=== PATIENT | male | born 1955 | race Caucasian/White ===

== ENCOUNTER 2022-01-22 12:18 | Inpatient (IN) | payer MEDICARE ==
[~2022-01-22] VITALS: Ht 185.4 cm; Wt 117.7 kg
[~2022-01-22 12:18] MED LIST: BENZ100A PO; Cheratussin AC118 ML PO; LEVO750 PO
[2022-01-22 14:21] LABS: BASOPHILS ABSOLUTE AUTO 0.04 K/mm3 (0.00-0.23); BASOPHILS PERCENT AUTO 0 % (0-2); EOSINOPHILS ABSOLUTE AUTO 0.06 K/mm3 (0.00-0.68); EOSINOPHILS PERCENT AUTO 0 % (0-6); Hematocrit 35.6 % (37.0-53.0); Hemoglobin 11.8 g/dL (13.5-17.5); IMMATURE GRAN ABSOLUTE AUTO 0.24 K/mm3 (0.00-0.10); IMMATURE GRAN PERCENT AUTO 2 % (0-1); LYMPHOCYTES ABSOLUTE AUTO 0.97 K/mm3 (0.84-5.20); LYMPHOCYTES PERCENT AUTO 7 % (21-46); MONOCYTES ABSOLUTE AUTO 0.32 K/mm3 (0.16-1.47); MONOCYTES PERCENT AUTO 2 % (4-13); Mean Corpuscular HGB 28.2 pg (26.0-34.0); Mean Corpuscular HGB Conc 33.1 g/dL (31.5-36.5); Mean Corpuscular Volume 85 fL (80-100); Mean Platelet Volume 9.5 fL (9.1-12.4); NEUTROPHILS PERCENT AUTO 88 % (41-73); Platelet Count 248 K/mm3 (150-400); RDW Coefficient Variation 14.9 % (11.7-14.2); RDW Standard Deviation 46.7 fL (35.1-46.3); Red Blood Cell Count 4.18 M/mm3 (4.30-5.90); White Blood Cell Count 13.93 K/mm3 (4.00-11.30)
[2022-01-22 14:39] LABS: Bun/Creatinine Ratio 27.5 (12.0-20.0); Calcium, Blood 9.2 mg/dL (8.5-10.1); Creatinine, Blood 1.6 mg/dL (0.60-1.20); Potassium, Blood 3.2 mmol/L (3.5-5.5)
[2022-01-22 14:57] LABS: Influenza A, PCR NEGATIVE (NEGATIVE); Influenza B, PCR NEGATIVE (NEGATIVE); Resp Syncytial Virus, PCR NEGATIVE (NEGATIVE); SARS-Cov-2 (COVID-19) PCR, MMC NEGATIVE (NEGATIVE)
[2022-01-22 18:01] LABS: Bun/Creatinine Ratio 24.1 (12.0-20.0); Calcium, Blood 8.6 mg/dL (8.5-10.1); Creatinine, Blood 1.62 mg/dL (0.60-1.20); Potassium, Blood 3.2 mmol/L (3.5-5.5)
[2022-01-23 05:15] LABS: BASOPHILS ABSOLUTE AUTO 0.04 K/mm3 (0.00-0.23); BASOPHILS PERCENT AUTO 0 % (0-2); EOSINOPHILS ABSOLUTE AUTO 0.08 K/mm3 (0.00-0.68); EOSINOPHILS PERCENT AUTO 1 % (0-6); Hematocrit 32.1 % (37.0-53.0); Hemoglobin 10.4 g/dL (13.5-17.5); IMMATURE GRAN ABSOLUTE AUTO 0.33 K/mm3 (0.00-0.10); IMMATURE GRAN PERCENT AUTO 2 % (0-1); LYMPHOCYTES ABSOLUTE AUTO 1.18 K/mm3 (0.84-5.20); LYMPHOCYTES PERCENT AUTO 8 % (21-46); MONOCYTES ABSOLUTE AUTO 0.51 K/mm3 (0.16-1.47); MONOCYTES PERCENT AUTO 4 % (4-13); Mean Corpuscular HGB 28.3 pg (26.0-34.0); Mean Corpuscular HGB Conc 32.4 g/dL (31.5-36.5); Mean Corpuscular Volume 87 fL (80-100); Mean Platelet Volume 9.5 fL (9.1-12.4); NEUTROPHILS ABSOLUTE AUTO 11.99 K/mm3 (1.96-9.15); NEUTROPHILS PERCENT AUTO 85 % (41-73); Platelet Count 261 K/mm3 (150-400); RDW Coefficient Variation 15.3 % (11.7-14.2); RDW Standard Deviation 48.9 fL (35.1-46.3); Red Blood Cell Count 3.68 M/mm3 (4.30-5.90); White Blood Cell Count 14.13 K/mm3 (4.00-11.30)
[2022-01-23 05:49] LABS: Albumin, Blood 1.6 g/dL (3.4-5.0); Albumin/Globulin Ratio 0.3 (0.8-1.8); Bilirubin, Total 0.6 mg/dL (0.1-1.0); Bun/Creatinine Ratio 29.6 (12.0-20.0); Creatinine, Blood 1.62 mg/dL (0.60-1.20); Globulin, Blood 5.6 g/dL (2.2-4.0); Potassium, Blood 3.7 mmol/L (3.5-5.5); Total Protein, Blood 7.2 g/dL (6.4-8.2)
--- NOTE | 2022-01-23 06:04 | NUR ---
SHIFT SUMMARY ER ADMIT. ARRIVAL TO PCU AT 2049. BP SOFT ON ARRIVAL. 70-80'S SYSTOLIC. 500ML BOLUS ORDRED IN ADDITION TO 100ML/HR NS AND SYSTOLIC REMAINS OVER 100 W/ MAP OVER 65. AFEBRILE. HR ST 100-130'S. ON RA SATS OVER 93%. STATES SOB IMPROVED SINCE ER. PT HAS OPEN PRESSURE ULCER ON BOTTOM, KNUCKLE DEEP. PACKED W/ CALCIUM ALGINATE, WOUND PHOTOS IN CHART. PT STATES THAT HE HAS DEALT WITH THIS WOUND FOR YEARS AND HAS NOT HAD ANY OUTPATIENT HELP WITH IT. PT REPORTS TO STRAIGHT CATH HIMSELF Q4 FOR YEARS , STRUGGLING MORESO RECENTLY. THIS RN AND 4 OTHER RN'S ATTEMPTED TO INSERT REDDY CATH WITH NO LUCK. BLADDER SCANNED AT 0500 FOR 270 ML. IN BED SLEEPING WITH CALL ALARM AT SIDE, WILL CONTINUE TO MONITOR UNTIL REPORT GIVEN TO ONCOMING RN
[2022-01-23 13:30] LABS: Source, Urine Foley catheter
[2022-01-23 13:34] LABS: Appearance, Urine Hazy (Clear); Bilirubin, Urine Neg (Neg); Blood, Urine 5+ (Neg); Color, Urine Yellow (P-Yellow); Glucose Qualitative, Urine Neg (Neg); Ketones, Urine 1+ (Neg); Leukocyte Esterase, Urine 3+ (Neg); Nitrite, Urine Neg (Neg); Protein, Urine 2+ (Neg); Specific Gravity, Urine 1.015 (1.003-1.022); Urobilinogen, Urine 2+ (Normal)
[2022-01-23 13:59] LABS: Bacteria Many /hpf; Squamous Epithelial Cells Rare /hpf (Few); White Blood Cells, Urine 25-50 /hpf (0-5)
[2022-01-23 14:00] LABS: Renal Epithelial Few /hpf (0-Rare); Transitional Epithelial Cells Rare /hpf (0-Rare)
--- NOTE | 2022-01-23 17:54 | NUR ---
END OF SHIFT NOTE PT A&O X4. PT W/ BRIEF VISUAL HALLUCINATION THIS AM, ASKING IF THERE IS A MOUSE PROBLEM HERE, STATING HAVING SEEN "MICE CLIMBING UP THE PIPE" IN RM. PT REPORTING INABILITY TO FEEL ANYTHING "BELOW MY NIPPLE LINE." PT UNABLE TO MOVE BLE. PT W/ OCCASSIONAL L LEG RESTLESSNESS. VSS. SPO2 > 92% ON RA. PT W/ OCCASSIONAL THICK BROWN SPUTUM. SPUTUM SPECIMEN SENT PER ORDER. PT MONITOR SHOWING SR-ST, HR 90s-130s. EKG DONE THIS SHIFT. REDDY CATH PLACED THIS SHIFT, DRAINING DARK YELLOW URINE. PT Q2H REPOSITIONING. WOUNDS CLEANSED & REDRESSED THIS SHIFT.
--- NOTE | 2022-01-23 21:16 | NUR ---
ASSUMPTION OF CARE THIS RN ASSUMED CARE OF PATIENT AT 1900. REPORT TAKEN FROM HERNESTO CASSIDY. PATIENT IS A&O X4; NO HALLUCINATIONS AT THIS TIME. PATIENT WITH TACHYPNEA AND DYSPNEA WITH MOVEMENT IN BED. SPO2 88-94% DEPENDENT ON POSITION AND MOVEMENT. 2L VIA NC PLACED ON PATIENT TO MAINTAIN O2 SATS >92%. PATIENT VERBALIZED OXYGEN HELPING WITH HIS SOB. BP STABLE. ST ON THE MONITOR WITH HR 100-110S AT REST. AFERBILE. PATIENT IS A PARAPLEGIC BUT ABLE TO MAKE HIS NEEDS KNOWN WITH GOOD STRENGTH/ROM IN UPPER HALF OF BODY. BED IN LOWEST POSITION AND CALL LIGHT WITHIN REACH. THIS RN WILL REVIEW CHART AND CONTINUE TO MONITOR AND PROVIDE INTERVENTIONS NEEDED/ORDERED.
[2022-01-24 03:18] LABS: Base Excess Venous -0.4 mmol/L; Bicarbonate Venous 23.5 mmol/L (24.0-30.0); pH Blood Venous 7.37 (7.34-7.37)
[2022-01-24 03:46] LABS: BASOPHILS ABSOLUTE AUTO 0.05 K/mm3 (0.00-0.23); BASOPHILS PERCENT AUTO 1 % (0-2); EOSINOPHILS ABSOLUTE AUTO 0.12 K/mm3 (0.00-0.68); EOSINOPHILS PERCENT AUTO 1 % (0-6); Hematocrit 30.8 % (37.0-53.0); Hemoglobin 9.9 g/dL (13.5-17.5); IMMATURE GRAN ABSOLUTE AUTO 0.41 K/mm3 (0.00-0.10); IMMATURE GRAN PERCENT AUTO 4 % (0-1); LYMPHOCYTES ABSOLUTE AUTO 1.22 K/mm3 (0.84-5.20); LYMPHOCYTES PERCENT AUTO 11 % (21-46); MONOCYTES ABSOLUTE AUTO 0.46 K/mm3 (0.16-1.47); MONOCYTES PERCENT AUTO 4 % (4-13); Mean Corpuscular HGB 28.3 pg (26.0-34.0); Mean Corpuscular HGB Conc 32.1 g/dL (31.5-36.5); Mean Corpuscular Volume 88 fL (80-100); Mean Platelet Volume 9.5 fL (9.1-12.4); NEUTROPHILS ABSOLUTE AUTO 8.61 K/mm3 (1.96-9.15); NEUTROPHILS PERCENT AUTO 79 % (41-73); Platelet Count 256 K/mm3 (150-400); RDW Coefficient Variation 15.7 % (11.7-14.2); RDW Standard Deviation 50.5 fL (35.1-46.3); White Blood Cell Count 10.87 K/mm3 (4.00-11.30)
[2022-01-24 04:09] LABS: Albumin, Blood 1.5 g/dL (3.4-5.0); Albumin/Globulin Ratio 0.3 (0.8-1.8); Bilirubin, Total 0.3 mg/dL (0.1-1.0); Bun/Creatinine Ratio 34.1 (12.0-20.0); Creatinine, Blood 1.35 mg/dL (0.60-1.20); Globulin, Blood 5.3 g/dL (2.2-4.0); Potassium, Blood 3.1 mmol/L (3.5-5.5); Total Protein, Blood 6.8 g/dL (6.4-8.2)
--- NOTE | 2022-01-24 05:16 | NUR ---
SHIFT SUMMARY NO ACUTE CHANGES DURING THIS SHIFT. PATIENT WAS ON 1L VIA NC TO MAINTAIN O2 SATS DURING THE NIGHT. PATIENT NOW BACK ON RA WITH O2 SATS >92%. PATIENT STATES THAT SOB HAS IMPROVED. PATIENT REPOSITIONED Q2HRS DURING THIS SHIFT. WOUND CARE DONE FOR WOUNDS ON COCCYX AT 0500. PATIENT'S REDDY CATHETER PATENT AND DRAINING GHAZALA COLOR URINE TO GRAVITY. ATTENDS IN PLACE. PATIENT ABLE TO MAKE NEEDS KNOWN. CALLING APPROPRIATELY. ST ON THE TELE WITH HR 100-110S AT REST. BP STABLE. AFEBRILE. PATIENT IN BED WITH BED IN LOWEST POSITION AND CALL LIGHT WITHIN REACH. NO VISUAL HALLUCINATIONS DURING THIS SHIFT REPORTED BY PREVIOUS RN. THIS RN WILL CONTINUE TO MONITOR UNTIL SHIFT CHANGE AT 0700.
--- NOTE | 2022-01-24 19:27 | NUR ---
END OF SHIFT NOTE - TRANSFER TO MEDICAL FLOOR PT MEDICAL NO TELE STATUS. A&O X4. VSS. SPO2 > 92% ON RA. MONITOR SHOWING SR, HR 80s-90s PRIOR TO TELE DC. PT W/ REDDY CATH IN PLACE, DRAINING GHAZALA COLOR URINE. REDDY CATH W/ OUT SECUREMENT DEVICE IN PLACE D/T SKIN BREAK DOWN. PT W/ MULTIPLE WOUNDS TO BUTTOCKS, SEE WOUND PHOTOS IN CHART. NO EVENTS THIS SHIFT. PT TO BE TRANSFERRED TO MEDICAL FLOOR RM [id number] ONCE ACCEPTING RN RETURNS CALL FOR REPORT.
--- NOTE | 2022-01-25 05:56 | NUR ---
PCU TRANSFER TO MEDICAL FLOOR BEGINNING OF SHIFT. PARAPLEGIC FROM CHEST DOWN. A&OX4. VSS. DENIES PAIN. HAD EPISODE OF NAUSEA, GIVEN IV ZOFRAN. PLEASANT AND COOPERATIVE WITH STAFF. REDDY CATH IN PLACE DRAINING CLEAR, YELLOW URINE. REDDY CATH TO BE DC IN AM.
[2022-01-25 06:02] LABS: Hematocrit 29.6 % (37.0-53.0); Hemoglobin 9.7 g/dL (13.5-17.5); Mean Corpuscular HGB 28.7 pg (26.0-34.0); Mean Corpuscular HGB Conc 32.8 g/dL (31.5-36.5); Mean Corpuscular Volume 88 fL (80-100); RDW Coefficient Variation 15.8 % (11.7-14.2); RDW Standard Deviation 50.4 fL (35.1-46.3); Red Blood Cell Count 3.38 M/mm3 (4.30-5.90)
[2022-01-25 06:23] LABS: Mean Platelet Volume 9.5 fL (9.1-12.4); Platelet Count 283 K/mm3 (150-400)
[2022-01-25 06:29] LABS: Bun/Creatinine Ratio 39.8 (12.0-20.0); Calcium, Blood 8.8 mg/dL (8.5-10.1); Creatinine, Blood 0.9 mg/dL (0.60-1.20)
[2022-01-25 06:35] LABS: BAND PERCENT MAN 2 % (0-8); BASOPHILS PERCENT MAN 0 % (0-2); EOSINOPHILS ABSOLUTE MAN 0.21 K/mm3 (0.00-0.68); EOSINOPHILS PERCENT MAN 2 % (0-6); LYMPHOCYTES ABSOLUTE MAN 1.27 K/mm3 (0.84-5.20); LYMPHOCYTES PERCENT MAN 12 % (21-46); MONOCYTES ABSOLUTE MAN 0.63 K/mm3 (0.16-1.47); MONOCYTES PERCENT MAN 6 % (4-13); NEUTROPHILS ABSOLUTE MAN 8.48 K/mm3 (1.96-9.15); SEG NEUTROPHILS PERCENT MAN 78 % (41-73); TOTAL CELLS COUNTED 100
--- NOTE | 2022-01-25 20:54 | NUR ---
SHIFT SUMMARY PTN IS MAXIMUM ASSIST WITH PARAPLEGIA, STRONG UPPER ARM STRENGTH. LUNGS ARE CLEAR AND DIMINISHED WITH LARGER BODY HABITUS. BELLY OBTUNDED. PTN HAS PRESSURE INJURIES TO SCROTUM AND COCCYX AREAS, CLEANED AND DRESSED WITH MEPHILEX THIS SHIFT. WAS PRESENT AND DID THE WOUND CARE WITH THIS RN HELP. REDDY IN PLACE AND WAS SUPPOSED TO BE D/C'D THIS SHIFT, BUT PTN REPORTED TO HAVE TALKED TO DR ADLER TO WAIT UNTIL TOMORROW. PTN REPORTS FORESKIN BECOMING HARDENED AND MAKING SELF-CATH MORE DIFFICULT, WHICH THE PTN WAS USED TO DOING. THIS WILL BE FURTHER DISCUSSED. CONTINUE TO MONITOR.
--- NOTE | 2022-01-26 07:47 | NUR ---
SHIFT SUMMARY: PATIENT CONTINUES TO REPORT LEFT SHOULDER PAIN, TYLENOL WITH PILLOW SUPPORT ARE GIVEN WITH GOOD EFFECT. PATIENT IS RESISTANT TO PILLOW SUPPORT AND WILL REMOVE PILLOW INDEPENDANTLY. REDDY IS PATENT FOR AN GHAZALA URINE. PATIENT REPORTS HE HAS BEEN HAVING DIFFICULTY STRAIGHT CATHING PRN AT HOME. PATIENT DOES NOT WANT REDDY REMOVED AND WOULD LIKE TO SPEAK WITH THE DOCTOR OBOUT IT.
[2022-01-26] MEDS ORDERED: VISBIOME PROBI1 EACH PO (11:32)
[2022-01-26] MEDS ORDERED: CEPH500 PO (11:33)
--- NOTE | 2022-01-26 13:03 | NUR ---
SHIFT SUMMARY PTN SEEN BY , D/C ORDERS PLACED. CASSIDY, CHARGE NURSE, COMPLETED D/C PAPERWORK AND REVIEWED WITH PTN. BARRY WAS D/C'D. PTN ESCORTED TO EXIT AT 1230.
== END 2022-01-26 12:27 | disposition home or self-care (01) | DRG 871 ==
LOC: ER 12:18 → PCU 18:19 → MEDS 18:19 → PCU 20:50 → MEDS 01-24 20:08
PROVIDERS: Internal Medicine; Student in an Organized Health Care Education/Training Program; ADMIT Internal Medicine
DX: A41.9 Sepsis, unspecified organism (principal); G92.8 Other toxic encephalopathy; J15.20 Pneumonia due to staphylococcus, unspecified; G82.22 Paraplegia, incomplete; J91.8 Pleural effusion in other conditions classified elsewhere; N17.9 Acute kidney failure, unspecified; E87.1 Hypo-osmolality and hyponatremia; R65.20 Severe sepsis without septic shock; E88.09 Other disorders of plasma-protein metabolism, not elsewhere classified; N18.30 Chronic kidney disease, stage 3 unspecified; E87.6 Hypokalemia; N32.0 Bladder-neck obstruction; N47.1 Phimosis; Z20.822 Contact with and (suspected) exposure to COVID-19; E86.0 Dehydration; R06.89 Other abnormalities of breathing; L89.899 Pressure ulcer of other site, unspecified stage; M79.89 Other specified soft tissue disorders; N31.9 Neuromuscular dysfunction of bladder, unspecified; Z79.899 Other long term (current) drug therapy; Z79.2 Long term (current) use of antibiotics; Z87.81 Personal history of (healed) traumatic fracture
CPT/HCPCS: 0241U; 36415; 51703; 71045; 73030; 76770; 80048; 80053; 81001; 82803; 83605; 83880; 84145; 84484; 85025; 87070; 87077; 87086; 87147; 87186; 87205; 92610; 93005; 93010; 93306; 96361; 96365; 96375; 97110; 97140; 97162; 97166; 97535; 99285-25; A9270; J0456; J0696; J1650; J1885; J2405; J3480; J7030; J7040; J7050

== ENCOUNTER 2022-01-30 11:29 | Emergency (ER) | payer MEDICARE ==
[~2022-01-30] VITALS: Ht 185.4 cm; Wt 108.9 kg
[~2022-01-30 11:29] MED LIST changes: +CEPH500 PO; +VISBIOME PROBI1 EACH PO
[2022-01-30 12:24] LABS: BASOPHILS ABSOLUTE AUTO 0.03 K/mm3 (0.00-0.23); BASOPHILS PERCENT AUTO 0 % (0-2); EOSINOPHILS PERCENT AUTO 1 % (0-6); Hemoglobin 10.3 g/dL (13.5-17.5); IMMATURE GRAN ABSOLUTE AUTO 0.16 K/mm3 (0.00-0.10); IMMATURE GRAN PERCENT AUTO 2 % (0-1); LYMPHOCYTES ABSOLUTE AUTO 1.19 K/mm3 (0.84-5.20); LYMPHOCYTES PERCENT AUTO 13 % (21-46); MONOCYTES ABSOLUTE AUTO 0.39 K/mm3 (0.16-1.47); MONOCYTES PERCENT AUTO 4 % (4-13); Mean Corpuscular HGB 28.3 pg (26.0-34.0); Mean Corpuscular HGB Conc 31.2 g/dL (31.5-36.5); Mean Corpuscular Volume 91 fL (80-100); Mean Platelet Volume 8.9 fL (9.1-12.4); NEUTROPHILS ABSOLUTE AUTO 7.22 K/mm3 (1.96-9.15); NEUTROPHILS PERCENT AUTO 79 % (41-73); Platelet Count 298 K/mm3 (150-400); RDW Coefficient Variation 15.8 % (11.7-14.2); Red Blood Cell Count 3.64 M/mm3 (4.30-5.90); White Blood Cell Count 9.09 K/mm3 (4.00-11.30)
[2022-01-30 12:39] LABS: Albumin, Blood 1.7 g/dL (3.4-5.0); Albumin/Globulin Ratio 0.3 (0.8-1.8); Bilirubin, Total 0.3 mg/dL (0.1-1.0); Bun/Creatinine Ratio 20.7 (12.0-20.0); Calcium, Blood 8.7 mg/dL (8.5-10.1); Creatinine, Blood 0.63 mg/dL (0.60-1.20); Potassium, Blood 3.8 mmol/L (3.5-5.5); Total Protein, Blood 7.7 g/dL (6.4-8.2)
== END 2022-01-30 19:05 | disposition home or self-care (01) ==
LOC: ER 11:29
PROVIDERS: Emergency Medicine
DX: R06.00 Dyspnea, unspecified (principal); F41.9 Anxiety disorder, unspecified; Z79.899 Other long term (current) drug therapy
CPT/HCPCS: 36415; 71046; 80053; 84484; 85025; 93005; 93010

== ENCOUNTER 2022-07-29 13:44 | Emergency (ER) | payer MEDICARE ==
[~2022-07-29] VITALS: Ht 185.4 cm; Wt 106.6 kg
[2022-07-29 15:00] LABS: Hematocrit 31.3 % (37.0-53.0); Mean Corpuscular HGB 27.8 pg (26.0-34.0); Mean Corpuscular HGB Conc 31.9 g/dL (31.5-36.5); Mean Corpuscular Volume 87 fL (80-100); Mean Platelet Volume 9.6 fL (9.1-12.4); Platelet Count 178 K/mm3 (150-400); RDW Coefficient Variation 15.9 % (11.7-14.2); RDW Standard Deviation 51.5 fL (35.1-46.3)
[2022-07-29 15:20] LABS: Albumin, Blood 1.4 g/dL (3.4-5.0); Albumin/Globulin Ratio 0.2 (0.8-1.8); Bilirubin, Total 0.8 mg/dL (0.1-1.0); Bun/Creatinine Ratio 28.9 (12.0-20.0); Calcium, Blood 8.6 mg/dL (8.5-10.1); Creatinine, Blood 0.83 mg/dL (0.60-1.20); Globulin, Blood 5.6 g/dL (2.2-4.0); Potassium, Blood 5.2 mmol/L (3.5-5.5)
[2022-07-29 15:30] LABS: BAND PERCENT MAN 19 % (0-8); BASOPHILS PERCENT MAN 0 % (0-2); EOSINOPHILS PERCENT MAN 0 % (0-6); LYMPHOCYTES ABSOLUTE MAN 0.92 K/mm3 (0.84-5.20); LYMPHOCYTES PERCENT MAN 12 % (21-46); METAMYELOCYTE ABSOLUTE MAN 0.07 K/mm3 (0.00-0.00); METAMYELOCYTE PERCENT MAN 1 % (0-0); MONOCYTES ABSOLUTE MAN 0.07 K/mm3 (0.16-1.47); MONOCYTES PERCENT MAN 1 % (4-13); NEUTROPHILS ABSOLUTE MAN 6.62 K/mm3 (1.96-9.15); SEG NEUTROPHILS PERCENT MAN 67 % (41-73); TOTAL CELLS COUNTED 100
[2022-07-29 16:43] LABS: Source, Urine Straight Cath
[2022-07-29 16:47] LABS: Appearance, Urine Cloudy (Clear); Blood, Urine 2+ (Neg); Color, Urine Yellow (P-Yellow); Glucose Qualitative, Urine Neg (Neg); Ketones, Urine Neg (Neg); Leukocyte Esterase, Urine 3+ (Neg); Nitrite, Urine Neg (Neg); Protein, Urine 2+ (Neg); Specific Gravity, Urine 1.015 (1.003-1.022); Urobilinogen, Urine 3+ (Normal)
[2022-07-29 16:55] LABS: Bilirubin, Urine 1+ (Neg)
[2022-07-29 16:57] LABS: White Blood Cells, Urine 25-50 /hpf (0-5)
[2022-07-29 16:58] LABS: Bacteria Many /hpf; Squamous Epithelial Cells Rare /hpf (Few)
[2022-07-29 16:59] LABS: Transitional Epithelial Cells Rare /hpf (0-Rare)
[2022-07-29 17:05] LABS: Influenza A, PCR NEGATIVE (NEGATIVE); Influenza B, PCR NEGATIVE (NEGATIVE); Resp Syncytial Virus, PCR NEGATIVE (NEGATIVE); SARS-Cov-2 (COVID-19) PCR, MMC NEGATIVE (NEGATIVE)
[2022-07-29 21:40] VITALS: BP 85/45
== END 2022-07-29 22:11 | disposition home or self-care (01) ==
LOC: ER 13:44
PROVIDERS: Emergency Medicine; Student in an Organized Health Care Education/Training Program
DX: A41.9 Sepsis, unspecified organism (principal); M00.9 Pyogenic arthritis, unspecified; R65.21 Severe sepsis with septic shock; M86.9 Osteomyelitis, unspecified; M84.452A Pathological fracture, left femur, initial encounter for fracture; G82.20 Paraplegia, unspecified; Z20.822 Contact with and (suspected) exposure to COVID-19
CPT/HCPCS: 0241U; 36415; 51702; 71045; 74177; 80053; 81001; 83605; 85025; 85730; 86140; 93005; 93010; J2543; J3370; J7030; J7050; J7060; J7120; Q9967

== ENCOUNTER → 2022-09-17 | Outpatient (CLI) | payer MEDICARE ==
[2022-09-17 15:10] LABS: Hemoglobin 9.7 g/dL (13.5-17.5); Mean Corpuscular HGB 29.6 pg (26.0-34.0); Mean Corpuscular HGB Conc 32.3 g/dL (31.5-36.5); Mean Corpuscular Volume 92 fL (80-100); Mean Platelet Volume 9.2 fL (9.1-12.4); Platelet Count 263 K/mm3 (150-400); RDW Coefficient Variation 16.9 % (11.7-14.2); RDW Standard Deviation 56.8 fL (35.1-46.3); Red Blood Cell Count 3.28 M/mm3 (4.30-5.90); White Blood Cell Count 5.97 K/mm3 (4.00-11.30)
[2022-09-17 15:25] LABS: Albumin, Blood 2.4 g/dL (3.4-5.0); Albumin/Globulin Ratio 0.5 (0.8-1.8); Bilirubin, Total 0.2 mg/dL (0.1-1.0); Bun/Creatinine Ratio 29.2 (12.0-20.0); C-REACTIVE PROTEIN, EXT RANGE 4.08 mg/dL (0.000-0.300); Calcium, Blood 8.7 mg/dL (8.5-10.1); Creatinine, Blood 0.58 mg/dL (0.60-1.20); Globulin, Blood 4.4 g/dL (2.2-4.0); Potassium, Blood 4.3 mmol/L (3.5-5.5); Total Protein, Blood 6.8 g/dL (6.4-8.2)
== END ==
LOC: LAB 14:05 → LAB SHORT 14:05
DX: Z13.228 Encounter for screening for other metabolic disorders (principal); D64.9 Anemia, unspecified; M86.9 Osteomyelitis, unspecified; R79.82 Elevated C-reactive protein (CRP)
CPT/HCPCS: 80053; 85027; 86140

== ENCOUNTER 2022-09-24 04:09 | Day surgery (SDC) | payer MEDICARE | END 2022-09-24 23:07 | disposition home or self-care (01) | LOC: WOUND 04:09 | DX: L89.224 Pressure ulcer of left hip, stage 4 (principal); L89.152 Pressure ulcer of sacral region, stage 2; G82.20 Paraplegia, unspecified | CPT/HCPCS: G0463 ==

== ENCOUNTER → 2022-09-30 | Outpatient (CLI) | payer MEDICARE | LOC: LAB SHORT 16:58 → LAB 16:58 | DX: R82.90 Unspecified abnormal findings in urine (principal) | CPT/HCPCS: 87086 ==

== ENCOUNTER 2022-10-02 04:30 | Day surgery (SDC) | payer MEDICARE | END 2022-10-02 23:04 | disposition home or self-care (01) | LOC: WOUND 04:30 | DX: L89.324 Pressure ulcer of left buttock, stage 4 (principal); L89.152 Pressure ulcer of sacral region, stage 2; T81.30XA Disruption of wound, unspecified, initial encounter; G82.20 Paraplegia, unspecified; I48.91 Unspecified atrial fibrillation; Y83.8 Other surgical procedures as the cause of abnormal reaction of the patient, or of later complication, without mention of misadventure at the time of the procedure ==

== ENCOUNTER 2022-10-10 01:26 | Day surgery (SDC) | payer MEDICARE | END 2022-10-10 23:15 | disposition home or self-care (01) | LOC: WOUND 01:26 | DX: L89.224 Pressure ulcer of left hip, stage 4 (principal); L89.152 Pressure ulcer of sacral region, stage 2; T81.31XD Disruption of external operation (surgical) wound, not elsewhere classified, subsequent encounter; G82.20 Paraplegia, unspecified | CPT/HCPCS: A9270 ==

== ENCOUNTER 2022-10-17 00:49 | Day surgery (SDC) | payer MEDICARE | END 2022-10-17 22:54 | disposition home or self-care (01) | LOC: WOUND 00:49 | DX: L89.224 Pressure ulcer of left hip, stage 4 (principal); L89.152 Pressure ulcer of sacral region, stage 2; T81.31XD Disruption of external operation (surgical) wound, not elsewhere classified, subsequent encounter; G82.20 Paraplegia, unspecified ==

== ENCOUNTER 2022-10-24 02:26 | Day surgery (SDC) | payer MEDICARE | END 2022-10-24 23:32 | disposition home or self-care (01) | LOC: WOUND 02:26 | DX: L89.224 Pressure ulcer of left hip, stage 4 (principal); L89.152 Pressure ulcer of sacral region, stage 2; I48.91 Unspecified atrial fibrillation; T81.31XD Disruption of external operation (surgical) wound, not elsewhere classified, subsequent encounter; G82.20 Paraplegia, unspecified ==

== ENCOUNTER 2022-11-07 00:55 | Day surgery (SDC) | payer MEDICARE | END 2022-11-07 22:58 | disposition home or self-care (01) | LOC: WOUND 00:55 | DX: L89.224 Pressure ulcer of left hip, stage 4 (principal); L89.152 Pressure ulcer of sacral region, stage 2; G82.20 Paraplegia, unspecified; M86.9 Osteomyelitis, unspecified; I48.91 Unspecified atrial fibrillation | CPT/HCPCS: A9270 ==

== ENCOUNTER 2022-11-14 01:39 | Day surgery (SDC) | payer MEDICARE | END 2022-11-14 22:54 | disposition home or self-care (01) | LOC: WOUND 01:39 | DX: L89.224 Pressure ulcer of left hip, stage 4 (principal); L89.152 Pressure ulcer of sacral region, stage 2; T81.31XD Disruption of external operation (surgical) wound, not elsewhere classified, subsequent encounter; G82.20 Paraplegia, unspecified; I48.91 Unspecified atrial fibrillation ==

== ENCOUNTER 2022-11-21 00:41 | Day surgery (SDC) | payer MEDICARE | END 2022-11-21 22:49 | disposition home or self-care (01) | LOC: WOUND 00:41 | DX: L89.224 Pressure ulcer of left hip, stage 4 (principal); L89.152 Pressure ulcer of sacral region, stage 2; T81.31XD Disruption of external operation (surgical) wound, not elsewhere classified, subsequent encounter; G82.20 Paraplegia, unspecified; I48.91 Unspecified atrial fibrillation; Y83.8 Other surgical procedures as the cause of abnormal reaction of the patient, or of later complication, without mention of misadventure at the time of the procedure; M89.8X6 Other specified disorders of bone, lower leg | CPT/HCPCS: 72220; A9270 ==

== ENCOUNTER 2022-12-12 00:32 | Day surgery (SDC) | payer MEDICARE | END 2022-12-12 22:50 | disposition home or self-care (01) | LOC: WOUND 00:32 | DX: L89.224 Pressure ulcer of left hip, stage 4 (principal); L89.152 Pressure ulcer of sacral region, stage 2; L89.324 Pressure ulcer of left buttock, stage 4; L89.92 Pressure ulcer of unspecified site, stage 2; T81.31XD Disruption of external operation (surgical) wound, not elsewhere classified, subsequent encounter; G82.20 Paraplegia, unspecified; I48.91 Unspecified atrial fibrillation | CPT/HCPCS: G0463 ==

== ENCOUNTER 2022-12-19 02:36 | Day surgery (SDC) | payer MEDICARE | END 2022-12-19 22:46 | disposition home or self-care (01) | LOC: WOUND 02:36 | DX: L89.324 Pressure ulcer of left buttock, stage 4 (principal); L89.152 Pressure ulcer of sacral region, stage 2; L89.893 Pressure ulcer of other site, stage 3; G82.20 Paraplegia, unspecified; T81.31XD Disruption of external operation (surgical) wound, not elsewhere classified, subsequent encounter; X58.XXXD Exposure to other specified factors, subsequent encounter; I48.91 Unspecified atrial fibrillation | CPT/HCPCS: G0463 ==

== ENCOUNTER 2022-12-26 05:05 | Day surgery (SDC) | payer MEDICARE | END 2022-12-26 22:44 | disposition home or self-care (01) | LOC: WOUND 05:05 | DX: L89.324 Pressure ulcer of left buttock, stage 4 (principal); L89.152 Pressure ulcer of sacral region, stage 2; L89.893 Pressure ulcer of other site, stage 3; I48.91 Unspecified atrial fibrillation; G82.20 Paraplegia, unspecified; T81.31XD Disruption of external operation (surgical) wound, not elsewhere classified, subsequent encounter; Y83.8 Other surgical procedures as the cause of abnormal reaction of the patient, or of later complication, without mention of misadventure at the time of the procedure | CPT/HCPCS: G0463 ==

== ENCOUNTER 2023-01-09 05:05 | Day surgery (SDC) | payer MEDICARE | END 2023-01-09 22:54 | disposition home or self-care (01) | LOC: WOUND 05:05 | DX: L89.224 Pressure ulcer of left hip, stage 4 (principal); L89.152 Pressure ulcer of sacral region, stage 2; L89.893 Pressure ulcer of other site, stage 3; T81.31XD Disruption of external operation (surgical) wound, not elsewhere classified, subsequent encounter; G82.20 Paraplegia, unspecified | CPT/HCPCS: G0463 ==

== ENCOUNTER 2023-01-16 01:54 | Day surgery (SDC) | payer MEDICARE | END 2023-01-16 22:51 | disposition home or self-care (01) | LOC: WOUND 01:54 | DX: L89.224 Pressure ulcer of left hip, stage 4 (principal); L89.152 Pressure ulcer of sacral region, stage 2; L89.892 Pressure ulcer of other site, stage 2; T81.31XD Disruption of external operation (surgical) wound, not elsewhere classified, subsequent encounter; G82.20 Paraplegia, unspecified; I48.91 Unspecified atrial fibrillation | CPT/HCPCS: G0463 ==

== ENCOUNTER 2023-01-23 03:01 | Day surgery (SDC) | payer MEDICARE | END 2023-01-23 22:38 | disposition home or self-care (01) | LOC: WOUND 03:01 | DX: L89.324 Pressure ulcer of left buttock, stage 4 (principal); L89.152 Pressure ulcer of sacral region, stage 2; L89.92 Pressure ulcer of unspecified site, stage 2; T81.31XD Disruption of external operation (surgical) wound, not elsewhere classified, subsequent encounter; G82.20 Paraplegia, unspecified; Y83.8 Other surgical procedures as the cause of abnormal reaction of the patient, or of later complication, without mention of misadventure at the time of the procedure | CPT/HCPCS: G0463 ==

== ENCOUNTER 2023-02-06 03:45 | Day surgery (SDC) | payer MEDICARE | END 2023-02-06 22:51 | disposition home or self-care (01) | LOC: WOUND 03:45 | DX: L89.224 Pressure ulcer of left hip, stage 4 (principal); L89.152 Pressure ulcer of sacral region, stage 2; L89.893 Pressure ulcer of other site, stage 3; I48.91 Unspecified atrial fibrillation; M86.9 Osteomyelitis, unspecified; G82.20 Paraplegia, unspecified; T81.31XD Disruption of external operation (surgical) wound, not elsewhere classified, subsequent encounter; Y83.8 Other surgical procedures as the cause of abnormal reaction of the patient, or of later complication, without mention of misadventure at the time of the procedure | CPT/HCPCS: A9270; G0463 ==

== ENCOUNTER 2023-02-13 03:05 | Day surgery (SDC) | payer MEDICARE | END 2023-02-13 23:14 | disposition home or self-care (01) | LOC: WOUND 03:05 | DX: L89.324 Pressure ulcer of left buttock, stage 4 (principal); L89.152 Pressure ulcer of sacral region, stage 2; L89.92 Pressure ulcer of unspecified site, stage 2; T81.31XD Disruption of external operation (surgical) wound, not elsewhere classified, subsequent encounter; G82.20 Paraplegia, unspecified | CPT/HCPCS: G0463 ==

== ENCOUNTER 2023-02-20 04:03 | Day surgery (SDC) | payer MEDICARE | END 2023-02-20 22:46 | disposition home or self-care (01) | LOC: WOUND 04:03 | DX: L89.324 Pressure ulcer of left buttock, stage 4 (principal); L89.152 Pressure ulcer of sacral region, stage 2; L89.92 Pressure ulcer of unspecified site, stage 2; G82.20 Paraplegia, unspecified; I50.9 Heart failure, unspecified; M19.90 Unspecified osteoarthritis, unspecified site; T81.31XD Disruption of external operation (surgical) wound, not elsewhere classified, subsequent encounter; Y83.8 Other surgical procedures as the cause of abnormal reaction of the patient, or of later complication, without mention of misadventure at the time of the procedure | CPT/HCPCS: G0463 ==

== ENCOUNTER 2023-02-27 03:07 | Day surgery (SDC) | payer MEDICARE | END 2023-02-28 00:07 | disposition home or self-care (01) | LOC: WOUND 03:07 | DX: T81.31XD Disruption of external operation (surgical) wound, not elsewhere classified, subsequent encounter (principal); G82.20 Paraplegia, unspecified; L89.324 Pressure ulcer of left buttock, stage 4; L89.152 Pressure ulcer of sacral region, stage 2; L89.92 Pressure ulcer of unspecified site, stage 2 ==

== ENCOUNTER 2023-03-13 03:02 | Day surgery (SDC) | payer MEDICARE | END 2023-03-13 23:12 | disposition home or self-care (01) | LOC: WOUND 03:02 | DX: L89.152 Pressure ulcer of sacral region, stage 2 (principal); L89.324 Pressure ulcer of left buttock, stage 4; L89.92 Pressure ulcer of unspecified site, stage 2; G82.20 Paraplegia, unspecified; I48.91 Unspecified atrial fibrillation; T81.31XD Disruption of external operation (surgical) wound, not elsewhere classified, subsequent encounter; Y83.8 Other surgical procedures as the cause of abnormal reaction of the patient, or of later complication, without mention of misadventure at the time of the procedure | CPT/HCPCS: G0463 ==

== ENCOUNTER 2023-03-20 02:50 | Day surgery (SDC) | payer MEDICARE | END 2023-03-20 22:52 | disposition home or self-care (01) | LOC: WOUND 02:50 | DX: L89.324 Pressure ulcer of left buttock, stage 4 (principal); L89.152 Pressure ulcer of sacral region, stage 2; L89.92 Pressure ulcer of unspecified site, stage 2; T81.31XD Disruption of external operation (surgical) wound, not elsewhere classified, subsequent encounter; G82.20 Paraplegia, unspecified | CPT/HCPCS: G0463 ==

== ENCOUNTER 2023-03-27 01:21 | Day surgery (SDC) | payer MEDICARE | END 2023-03-27 22:55 | disposition home or self-care (01) | LOC: WOUND 01:21 | DX: L89.324 Pressure ulcer of left buttock, stage 4 (principal); L89.152 Pressure ulcer of sacral region, stage 2; L89.92 Pressure ulcer of unspecified site, stage 2; T81.31XD Disruption of external operation (surgical) wound, not elsewhere classified, subsequent encounter; G82.20 Paraplegia, unspecified; Y83.8 Other surgical procedures as the cause of abnormal reaction of the patient, or of later complication, without mention of misadventure at the time of the procedure | CPT/HCPCS: G0463 ==

== ENCOUNTER 2023-04-03 03:40 | Day surgery (SDC) | payer MEDICARE | END 2023-04-04 00:11 | disposition home or self-care (01) | LOC: WOUND 03:40 | DX: L89.324 Pressure ulcer of left buttock, stage 4 (principal); I48.91 Unspecified atrial fibrillation; L89.152 Pressure ulcer of sacral region, stage 2; L89.92 Pressure ulcer of unspecified site, stage 2; G82.20 Paraplegia, unspecified; T81.31XD Disruption of external operation (surgical) wound, not elsewhere classified, subsequent encounter; Y83.8 Other surgical procedures as the cause of abnormal reaction of the patient, or of later complication, without mention of misadventure at the time of the procedure | CPT/HCPCS: A6213; G0463 ==

== ENCOUNTER 2023-04-10 01:25 | Day surgery (SDC) | payer MEDICARE | END 2023-04-10 22:58 | disposition home or self-care (01) | LOC: WOUND 01:25 | DX: L89.324 Pressure ulcer of left buttock, stage 4 (principal); L89.152 Pressure ulcer of sacral region, stage 2; L89.92 Pressure ulcer of unspecified site, stage 2; T81.31XD Disruption of external operation (surgical) wound, not elsewhere classified, subsequent encounter; G82.20 Paraplegia, unspecified; M86.9 Osteomyelitis, unspecified; I48.91 Unspecified atrial fibrillation; Y83.8 Other surgical procedures as the cause of abnormal reaction of the patient, or of later complication, without mention of misadventure at the time of the procedure | CPT/HCPCS: A6213; G0463 ==

== ENCOUNTER 2023-04-17 00:52 | Day surgery (SDC) | payer MEDICARE | END 2023-04-17 23:15 | disposition home or self-care (01) | LOC: WOUND 00:52 | DX: L89.224 Pressure ulcer of left hip, stage 4 (principal); M86.9 Osteomyelitis, unspecified; I48.91 Unspecified atrial fibrillation; L89.324 Pressure ulcer of left buttock, stage 4; L89.152 Pressure ulcer of sacral region, stage 2; L89.92 Pressure ulcer of unspecified site, stage 2; T81.31XD Disruption of external operation (surgical) wound, not elsewhere classified, subsequent encounter; G82.20 Paraplegia, unspecified | CPT/HCPCS: G0463 ==